=== PATIENT | male | born 1960 | race Two or more races ===

== ENCOUNTER 2025-07-15 07:52 | Outpatient (CLI) | payer OTHER ==
[2025-07-15 09:15] LABS: BASO % 0.7 % (0.1-1.2); EOS # 0.18 (0.04-0.54); EOS % 3.0 % (0.7-7.0); LYMPH # 1.37 (1.18-3.74); LYMPH % 22.5 % (19.3-53.1); MEAN PLATELET VOLUME 10.40 fl (9.4-12.4); MONO # 0.35 (0.24-0.82); MONO % 5.7 % (4.7-12.5); NEUT # 4.15 (1.56-6.13); NEUT % 68.1 % (34.0-71.1); RED CELL DISTRIBUTION WIDTH 13.8 % (11.6-14.4)
[2025-07-15 09:46] LABS: ALT/SGPT 36.0 U/L (12-78); AST/SGOT 22.0 U/L (15-37); BILIRUBIN TOTAL 0.4 mg/dL (0.3-1.2); BUN CREA RATIO 13.0 (7.0-25.0); CHOL HDL RATIO 5.1 (0-5.0); CREATININE SERUM 0.84 mg/dL (0.70-1.30); GFR 92.59; GLOBULINA 2.6 G/DL (2.4-3.5); GLUCOSE FASTING 95.0 mg/dL (65-100); HDL 45.0 mg/dl (40-60); LDL 151.0 mg/dl (0-130); OSMOLALITY SERUM 286.0 MOSM/KG (275-295); VLDL 35.0 (0-39)
== END 2025-07-15 08:00 | disposition home or self-care (01) ==
LOC: LAB 07:52
PROVIDERS: ATTEND Internal Medicine
DX: R73.01 Impaired fasting glucose (principal); E78.00 Pure hypercholesterolemia, unspecified